=== PATIENT | female | born 1950 | race Caucasian/White ===

== ENCOUNTER 2017-04-23 08:48 | Observation (INO) | payer MEDICARE, BC ==
[2017-04-23] MEDS ORDERED: Aspirin Low Dose CHEW TAB* 81 MG PO ONE (08:51)
[2017-04-23] MEDS ORDERED: Nitroglycerin TAB 0.4 MG* 0.4 MG TAB SL PRN (08:51)
[2017-04-23] MEDS ORDERED: Nitroglycerin TAB 0.4 MG* 0.4 MG TAB ONE (09:07)
[2017-04-23 09:09] LABS: Hematocrit 50 % (35-47); Hemoglobin 17.3 g/dl (12.0-16.0); Mean Corpuscular HGB Conc 35 g/dl (31-36); Mean Corpuscular Hemoglobin 34 pg (27-31); Mean Corpuscular Volume 99 fL (80-97); Mean Platelet Volume 10 um3 (7.4-10.4); Red Blood Count 5.04 10^6/ul (4.0-5.4); Red Cell Distribution Width 13 % (10.5-15); White Blood Count 6.7 10^3/ul (3.5-10.8)
[2017-04-23 09:26] LABS: Albumin 4.6 g/dL (3.2-5.2); BUN/Creatinine Ratio 14.6 (8-20); Calcium 9.8 mg/dL (8.6-10.3); EGFR African American 69.2 (>60); EGFR Non-African American 53.8 (>60); Globulin 2.9 g/dL (2-4); Potassium 3.3 mmol/L (3.5-5.0); Total Bilirubin 2.2 mg/dL (0.2-1.0); Total Protein 7.5 g/dL (6.4-8.9)
--- NOTE | 2017-04-23 09:40 | RAD ---
Indication: Epigastric pressure, shortness of breath, cardiac irregularity, hypertension. History of bronchitis. Comparison: December 08, 2014 Technique: Upright AP 0911 hours Report: Clear lungs and pleural spaces. Negative for pneumothorax. The heart, pulmonary vasculature, and mediastinal contours are unremarkable. Negative for free air beneath the diaphragm. Gallbladder fossa level surgical clips. Unchanged mild LEFT convex curve at the thoracic spine. IMPRESSION: No evidence for acute intrathoracic disease.
[2017-04-23 10:02] LABS: T4 6.02 mcg/mL (6.09-12.23)
[2017-04-23 10:03] LABS: TSH (Thyroid Stimulating Horm) 1.38 mcIU/mL (0.34-5.60)
[2017-04-23] MEDS ORDERED: Potassium Chlor TAB* 20 MEQ TAB.ER PO ONE (10:42)
[2017-04-23] MEDS ORDERED: NS 0.9% 1000 ML* 1,000 ML IV ONE (11:38)
[2017-04-23] MEDS ORDERED: Albuterol HFA INHALER* 8 gm MDI INH PRN (11:43)
[2017-04-23] MEDS ORDERED: traZODone TAB* 50 MG TAB PO PRN (11:43)
[2017-04-23] MEDS ORDERED: NS 0.9% 1000 ML* 1,000 ML IV SCH (11:45)
--- NOTE | 2017-04-23 12:12 | ED ---
Brenda Coats Auryana, scribed for Kaleb Pena MD on 04/23/17 at 0902 . 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 Her states that she was very tired yesterday but did not have any chest pain. He also reports that she has been having increased SOB , cough, and wheezing for 1 week due to allergens secondary to asthma. PMHx is significant for asthma, depression, HTN (per medical records), palpations (HCT and metoprolol to control) but states no history of HTN, HLD, or DM. states no FHx of early PR, HTN, HLD, or CAD - previous medical records indicate family history of HTN, CAD, bladder cancer, and breast cancer. Per medical records history of rare alcohol use - no tobacco use. - History of Current Complaint Time Seen by Provider: 04/23/17 08:49 Hx Obtained From: Family/Baggage Handler - Onset/Duration: Started Minutes Ago - 20 minutes CAD ENGINEER Time of Onset: 08:29 - 20 minutes CAD ENGINEER Timing: Constant Initial Severity: Moderate Current Severity: Moderate Chest Pain Location: Diffuse Character: Crushing Associated Signs and Symptoms: Positive: Chest Pain, Shortness of Breath, Cough , Wheezing Related History: Similar Episode/Dx as: - history of palpitations - Allergy/Home Medications Allergies/Adverse Reactions: Allergies Allergy/AdvReac Type Severity Reaction Status Date / Time Amoxicillin [From Augmentin] Allergy Unknown Verified 06/20/16 15:02 Reaction Details Clavulanic Acid Allergy Unknown Verified 06/20/16 15:02 [From Augmentin] Reaction Details Niacinamide Allergy Unknown Verified 07/17/16 14:53 [From B-Complex W/B-12] Reaction Details Pantothenic Acid Allergy Unknown Verified 07/17/16 14:53 [From B-Complex W/B-12] Reaction Details Povidone Iodine Allergy Unknown Verified 06/20/16 15:02 [From Betadine] Reaction Details Pyridoxine Allergy Unknown Verified 07/17/16 14:53 [From B-Complex W/B-12] Reaction Details Riboflavin Allergy Unknown Verified 07/17/16 14:53 [From B-Complex W/B-12] Reaction Details Thiamine Allergy Unknown Verified 07/17/16 14:53 [From B-Complex W/B-12] Reaction Details Tobramycin [From Tobrex] Allergy Unknown Verified 06/20/16 15:02 Reaction Details Vitamin B12 Allergy Unknown Verified 07/17/16 14:53 [From B-Complex W/B-12] Reaction Details vitamin b complex Allergy Unknown Uncoded 06/20/16 15:02 Reaction Details Home Medications: Home Medications Multiple Vitamin [Multivitamin+] 1 liq PO DAILY 04/23/17 [History Confirmed ] Allen-3 Fatty Acids [Fish Oil] 1,000 mg PO BID 04/23/17 [History Confirmed 04/23] PMH/Surg Hx/FS Hx/Imm Hx Cardiovascular History: Reports: Hx Hypertension, Other Cardiovascular Problems/ Disorders - palpitations Respiratory History: Reports: Hx Asthma Psychiatric History: Reports: Hx Depression - Cancer History Hx Chemotherapy: No Hx Radiation Therapy: No - Surgical History Surgery Procedure, Year, and Place: BREAST REDUCTION 3 YRS - Family History Known Family History: Positive: Cardiac Disease, Hypertension, Other - breast cancer, bladder cancer; NO HISTORY OF EARLY PR Negative: Diabetes - Social History Occupation: Retired Lives: With Family Alcohol Use: Rare Hx Substance Use: No Substance Use Type: Reports: None Hx Tobacco Use: No Smoking Status (MU): Never Smoked Tobacco Review of Systems Constitutional: Negative Eyes: Negative ENT: Negative Positive: Chest Pain Positive: Shortness Of Breath, Cough, Other - wheezing Gastrointestinal: Negative Genitourinary: Negative Musculoskeletal: Negative Skin: Negative Neurological: Negative Psychological: Normal All Other Systems Reviewed And Are Negative: Yes Physical Exam - Summary Physical Exam Summary: VITAL SIGNS: Reviewed. GENERAL: Patient is a well-developed and nourished female who is lying anxious and nervous in the stretcher. Patient is not in any acute respiratory distress. HEAD AND FACE: No signs of trauma. No ecchymosis, hematomas or skull depressions. No sinus tenderness. EYES: PERRLA, EOMI x 2, No injected conjunctiva, no nystagmus. EARS: Hearing grossly intact. Ear canals and tympanic membranes are within normal limits. MOUTH: Oropharynx within normal limits. NECK: Supple, trachea is midline, no adenopathy, no JVD, no carotid bruit, no c- spine tenderness, neck with full ROM. CHEST: Symmetric, no tenderness at palpation LUNGS: Clear to auscultation bilaterally. No wheezing or crackles. CVS: Regular rate and rhythm, S1 and S2 present, no murmurs or gallops appreciated. ABDOMEN: Soft, non-tender. No signs of distention. No rebound no guarding, and no masses palpated. Bowel sounds are normal. EXTREMITIES: FROM in all major joints, no edema, no cyanosis or clubbing. NEURO: Alert and oriented x 3. No acute neurological deficits. Speech is normal and follows commands. SKIN: Dry and warm Triage Information Reviewed: Yes Vital Signs On Initial Exam: Initial Vitals Temp Pulse Resp BP 97.2 F 93 30 145/98 04/23/17 08:49 04/23/17 08:49 04/23/17 08:49 04/23/17 08:49 Vital Signs Reviewed: Yes Diagnostics - Vital Signs Vital Signs Temp Pulse Resp BP Pulse Ox 04/23/17 09:04 64 22 127/88 100 04/23/17 09:00 51 16 101/67 100 04/23/17 08:56 75 20 100 04/23/17 08:55 97.5 F 64 20 145/98 100 04/23/17 08:49 97.2 F 93 30 145/98 - Laboratory Lab Results: Lab Results 04/23/17 04/23/17 04/23/17 Range/Units 08:55 08:55 08:55 WBC 6.7 (3.5-10.8) 10^3/ul RBC 5.04 (4.0-5.4) 10^6/ul Hgb 17.3 H (12.0-16.0) g/dl Hct 50 H (35-47) % MCV 99 H (80-97) fL MCH 34 H (27-31) pg MCHC 35 (31-36) g/dl RDW 13 (10.5-15) % Plt Count 194 (150-450) 10^3/ul MPV 10 (7.4-10.4) um3 Neut % (Auto) 46.8 (38-83) % Lymph % (Auto) 41.0 (25-47) % [place] % (Auto) 9.9 H (1-9) % Eos % (Auto) 1.3 (0-6) % Baso % (Auto) 1.0 (0-2) % Absolute Neuts (auto) 3.1 (1.5-7.7) 10^3/ul Absolute Lymphs (auto) 2.8 (1.0-4.8) 10^3/ul Absolute Monos (auto) 0.7 (0-0.8) 10^3/ul Absolute Eos (auto) 0.1 (0-0.6) 10^3/ul Absolute Basos (auto) 0.1 (0-0.2) 10^3/ul Absolute Nucleated RBC 0.01 10^3/ul Nucleated RBC % 0.1 D-Dimer, Quantitative (Less Than 230) ng/mL Sodium 134 (133-145) mmol/L Potassium 3.3 L (3.5-5.0) mmol/L Chloride 102 (101-111) mmol/L Carbon Dioxide 21 L (22-32) mmol/L Anion Gap 11 (2-11) mmol/L BUN 15 (6-24) mg/dL Creatinine 1.03 H (0.51-0.95) mg/dL Est GFR ( Amer) 69.2 (>60) Est GFR (Non-Af Amer) 53.8 (>60) BUN/Creatinine Ratio 14.6 (8-20) Glucose 119 H (70-100) mg/dL Lactic Acid 2.8 H* (0.5-2.0) mmol/L Calcium 9.8 (8.6-10.3) mg/dL Magnesium 2.0 (1.9-2.7) mg/dL Total Bilirubin 2.20 H (0.2-1.0) mg/dL AST 151 H (13-39) U/L ALT 41 (7-52) U/L Alkaline Phosphatase 75 (34-104) U/L Total Creatine Kinase 87 (10-223) U/L CK-MB (CK-2) 1.8 (0.6-6.3) ng/mL Myoglobin 34.7 (14.3-65.8) ng/mL Troponin I 0.00 (<0.04) ng/mL B-Natriuretic Peptide ( - 100) pg/mL Total Protein 7.5 (6.4-8.9) g/dL Albumin 4.6 (3.2-5.2) g/dL Globulin 2.9 (2-4) g/dL Albumin/Globulin Ratio 1.6 (1-3) TSH 1.38 (0.34-5.60) mcIU/mL Thyroxine (T4) 6.02 L (6.09-12.23) mcg/mL 04/23/17 04/23/17 Range/Units 08:55 08:55 WBC (3.5-10.8) 10^3/ul RBC (4.0-5.4) 10^6/ul Hgb (12.0-16.0) g/dl Hct (35-47) % MCV (80-97) fL MCH (27-31) pg MCHC (31-36) g/dl RDW (10.5-15) % Plt Count (150-450) 10^3/ul MPV (7.4-10.4) um3 Neut % (Auto) (38-83) % Lymph % (Auto) (25-47) % [place] % (Auto) (1-9) % Eos % (Auto) (0-6) % Baso % (Auto) (0-2) % Absolute Neuts (auto) (1.5-7.7) 10^3/ul Absolute Lymphs (auto) (1.0-4.8) 10^3/ul Absolute Monos (auto) (0-0.8) 10^3/ul Absolute Eos (auto) (0-0.6) 10^3/ul Absolute Basos (auto) (0-0.2) 10^3/ul Absolute Nucleated RBC 10^3/ul Nucleated RBC % D-Dimer, Quantitative < 200 (Less Than 230) ng/mL Sodium (133-145) mmol/L Potassium (3.5-5.0) mmol/L Chloride (101-111) mmol/L Carbon Dioxide (22-32) mmol/L Anion Gap (2-11) mmol/L BUN (6-24) mg/dL Creatinine (0.51-0.95) mg/dL Est GFR ( Amer) (>60) Est GFR (Non-Af Amer) (>60) BUN/Creatinine Ratio (8-20) Glucose (70-100) mg/dL Lactic Acid (0.5-2.0) mmol/L Calcium (8.6-10.3) mg/dL Magnesium (1.9-2.7) mg/dL Total Bilirubin (0.2-1.0) mg/dL AST (13-39) U/L ALT (7-52) U/L Alkaline Phosphatase (34-104) U/L Total Creatine Kinase (10-223) U/L CK-MB (CK-2) (0.6-6.3) ng/mL Myoglobin (14.3-65.8) ng/mL Troponin I (<0.04) ng/mL B-Natriuretic Peptide 63 ( - 100) pg/mL Total Protein (6.4-8.9) g/dL Albumin (3.2-5.2) g/dL Globulin (2-4) g/dL Albumin/Globulin Ratio (1-3) TSH (0.34-5.60) mcIU/mL Thyroxine (T4) (6.09-12.23) mcg/mL Result Diagrams: 04/23/17 08:55 04/23/17 08:55 Lab Statement: Any lab studies that have been ordered have been reviewed, and results considered in the medical decision making process. 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 Her states that she was very tired yesterday but did not have any chest pain. He also reports that she has been having increased SOB, cough, and wheezing for 1 week due to allergens secondary to asthma. PMHx is significant for asthma, depression, HTN (per medical records), palpations (HCT and metoprolol to control) but states no history of HTN, HLD, or DM. states no FHx of early PR, HTN, HLD, or CAD - previous medical records indicate family history of HTN, CAD, bladder cancer, and breast cancer. Per medical records history of rare alcohol use - no tobacco use. Test results shows increase H/H. Potassium 3.3, glucose 119, lactic acid 2.8. Troponin 0.00. EKG shows no GERMÁN but ST depressions in V4-V6. In the Ed she was given ASA and Nitroglycerin and her symptoms improved. At this time she is asymptomatic. BEcause of her comorbidities, presentation and resolution with NTG I discussed my physical exam, findings and test results with Dr. Campos from the hospitalist services and she agrees to admit patient to his services. Patient is hemodynamically stable alert and oriented x 3. Assessment/Plan: CXR - NAD. EKG - NSR @ 70 BPM, no ST elevation but ST depressions in V4, V5, and V6 - Diagnoses Provider Diagnoses: Chest pain r/o ACS - Provider Notifications Discussed Care Of Patient With: Dr. Campos Time Discussed With Above Provider: 10:46 - agrees to admit patient Discharge - Discharge Plan Condition: Stable Disposition: ADMITTED TO [facility] Referrals: Mary Grimm GIS MANAGER [Primary Care Provider] - The documentation as recorded by the Brenda cyo Auryana accurately reflects the service I personally performed and the decisions made by me, Kaleb Pena MD.
[2017-04-23] MEDS: KCL 10 MEQ/50 ML IVPREMIX* 10 MEQ/50 ML BAG IV SCH ×3 (12:50→19:32)
[2017-04-23] MEDS: Heparin VIAL(*) 5000 UNITS/ML VIAL (FIVE THOUSAND) SUBCUT SCH ×2 (12:54→22:10)
[2017-04-23] MEDS: Nitroglycerin 2% OINT* 1 GM PAK TOPICAL SCH ×2 (12:59→19:32)
[2017-04-23] MEDS ORDERED: Acetaminophen TAB* 325 MG PO PRN (19:42)
--- NOTE | 2017-04-23 20:24 | HP ---
HISTORY AND PHYSICAL: DATE OF ADMISSION: 04/23/17 PRIMARY CARE PROVIDER: Mary Grimm NP ATTENDING PHYSICIAN WHILE IN THE HOSPITAL: Dr. Randolph Campos* (report being dictated by Sahil Garzon NP). CHIEF COMPLAINT: Chest tightness. HISTORY OF PRESENT ILLNESS: Ms. Mckeon is a 66-year-old female patient. She has a history of hypertension, asthma, depression, IBS, skin cancer, and GERD. She came in today saying that yesterday she was feeling tired, feeling off, just was not feeling herself. She woke up, she got up this morning, she was going to go workout, but she did not work out because she started getting chest heaviness and tightness after she had drunk a cup of coffee and had a part of a cookie. She says the discomfort though did not feel like her typical GERD symptoms, she did not feel burning. She had no pain in her epigastric, but she had this heaviness and tightness that got progressively worse and she started feeling clammy. She was nauseated and she was feeling short of breath, the discomfort got worse. She tried walking up and down the stairs, did not make the discomfort any worse when she did this, but it did not make it any better. She started getting anxious and she called her to bring her into the hospital as she was concerned that that this could be something more serious. She denied any recent trips or travel. Denied having any leg, calf pain, or any swelling of the lower extremities. She denied having any recent fevers, chills, runny nose, or rhinorrhea. She says that she has not experienced this pain before when she exercises and she exercises about every other day. She came in to the ER. She was evaluated and it was noted that she had some EKG changes that we do not know if chronic or new. In addition to this , there was concern because of the chest discomfort, so the hospitalist service was asked to evaluate for admission. PAST MEDICAL HISTORY: Significant for: 1. Hypertension. 2. Asthma. 3. Depression. 4. IBS. 5. GERD. 6. Skin cancer. PAST SURGICAL HISTORY: She has had: 1. Laparoscopic cholecystectomy. 2. Ectopic . 3. Lysis of adhesions. 4. Tonsillectomy. HOME MEDICATIONS: According to list that she gave us include: 1. Trazodone 50 mg p.o. bedtime as needed. 2. Progesterone 100 mg p.o. daily. 3. Otis-3 fatty acids 1000 mg p.o. b.i.d. 4. Multivitamin 1 capsule p.o. daily. 5. Metoprolol 25 mg daily. 6. Hydrochlorothiazide 25 mg daily. 7. Estradiol patch 1 patch transdermally monthly. 8. Cetirizine 10 mg p.o. daily. 9. Wellbutrin 150 mg p.o. daily. 10. Albuterol 2 puffs inhaled every 4 hours as needed. ALLERGIES TO MEDICATIONS: Include AUGMENTIN, BETADINE, VITAMIN B COMPLEX, and TOBRADEX. FAMILY HISTORY: Her mother had valvular heart disease. Father had a history of hypertension. SOCIAL HISTORY: She does not smoke. She does drink wine with dinner. She is retired. Surrogate decision maker is her . REVIEW OF SYSTEMS: There is no documented fever. She denied having any significant weight change. She admits to having chest pressure, but it is gone now. She denies having any double vision. There is no ear discharge. There was no rhinorrhea. No sore throat. No thyroid enlargement. She again did admit to having chest pressure. No orthopnea, no dyspnea on exertion. There was no abdominal pain. There was nausea. There was no dysuria, no frequency. No seizure, no loss of consciousness. No pruritus and no skin ulcerations. Review of 14 systems completed, all others are negative. PHYSICAL EXAMINATION GENERAL: At this time, Ms. Mckeon is a 66-year-old female patient. She is sitting in the ER stretcher. She appears to be well-nourished and well- developed. Does not appear to be in any acute distress. VITAL SIGNS: Reveal blood pressure 127/88 with a pulse 65, respirations 20, O2 sat 100%, temperature 97.5. HEENT: Head is atraumatic, normocephalic. Eyes: EOMs are intact. Sclerae are anicteric, not pale. Neck supple. Throat: Oral mucosa appears to be moist. No oropharyngeal erythema. LUNGS: Clear to auscultation bilaterally. No wheezes, rales, or rhonchi. HEART: Sounds S1 and S2. Regular rate and rhythm. No murmurs, rubs, or gallops. ABDOMEN: Soft, flat, and nontender. Bowel sounds present. EXTREMITIES: Pulses were 2+ throughout. She is able to move all 4 extremities with 5/5 strength. NEUROLOGIC: The patient is awake, alert, she is oriented x3. SKIN: Intact. DIAGNOSTIC STUDIES/LAB DATA: Labs revealed a WBC of 6.7, RBC of 5.04, hemoglobin of 17.3, hematocrit of 50, platelet count of 194. D-dimer less than 200. Her sodium was 134, potassium was 3.3, chloride of 102, bicarb 21, BUN 15 , creatinine 1.03, glucose 119, lactate 2.8, calcium 9.8. Total bili 2.2, mag 2.0, AST 151, ALT 41. CK 7, CK-MB 1.8, myoglobin 34. Troponin 0. BNP is 63. Albumin 4.6. TSH 1.38. She had an EKG obtained today, a repeat is pending. She has a wandering baseline, but there is no ST elevation; however, she does have some ST depressions in V4, V5, and V6. I do not have a previous record for comparison and she had an inverted T wave in V1. I am going to repeat that EKG now. She did have a chest x-ray, which when I reviewed, I did not appreciate any acute intrathoracic disease or any infiltrates or effusions. Radiology read as no acute intrathoracic disease. Old medical records reviewed. ASSESSMENT AND PLAN: Ms. Mckeon is a 66-year-old female patient coming into the ER today with complaints of chest discomfort. She will be admitted under observation status for: 1. Chest pain. Again, the etiology is unclear. She does have some EKG changes and ST depression. She is chest pain free now. Plan is to repeat her troponin now and repeat the EKG. If either of these is changing or she has elevating enzymes, I will get in touch with Dr. Coleman to evaluate the patient and I will start her on heparin drip. She is already on a beta yolande. She took it this morning. She received aspirin and nitro. I am going to put nitro paste on her chest and we will put her on telemetry and we will continue to follow. Again, if the troponins are elevated, then I will get Cardiology consult, most likely start a heparin drip. 2. Hypertension. Continue meds as prescribed with the exception of the hydrochlorothiazide. 3. Lactic acidosis. I do not think she is infected. She appears to be pretty dehydrated. She is heme concentrated. We will hold the hydrochlorothiazide, go ahead and give her some fluids and follow. If she spikes a fever, then I would panculture her. 4. Asthma. P.r.n. albuterol has been ordered. 5. Irritable bowel syndrome. Continue with her current medical regimen. 6. Depression. Continue supportive care. 7. Hypertension. Continue with beta yolande. 8. Gastroesophageal reflux disease. We will consider starting a PPI if her cardiac workup is negative and she has had esophagitis in the past. 9. History of skin cancer. Follow with primary. 10. Hypokalemia. We will go ahead and replace this with IV potassium. 11. Code status. Full code. 12. DVT prophylaxis. She was placed on heparin subcu. 13. Fluids, electrolytes, and nutrition. She can have a heart-healthy diet and she is n.p.o. tonight. TIME SPENT: On this admission was approximately 70 minutes, greater than half time spent [id number] with the patient obtaining my history and physical, the other half time was spent going over the plan of care with the patient and implementing plan of care. I did discuss the plan of care with my attending, Dr. Campos; he is in agreement. SAHIL GARZON NP CC: Mary Grimm NP* [id number]/[facility] #: [id number] GONZALEZ
[2017-04-24 05:34] LABS: Hematocrit 42 % (35-47); Hemoglobin 14.4 g/dl (12.0-16.0); Mean Corpuscular HGB Conc 35 g/dl (31-36); Mean Corpuscular Hemoglobin 35 pg (27-31); Mean Corpuscular Volume 100 fL (80-97); Mean Platelet Volume 10 um3 (7.4-10.4); Red Blood Count 4.18 10^6/ul (4.0-5.4); Red Cell Distribution Width 13 % (10.5-15); White Blood Count 4.8 10^3/ul (3.5-10.8)
[2017-04-24] MEDS: Heparin VIAL(*) 5000 UNITS/ML VIAL (FIVE THOUSAND) SUBCUT SCH (05:36)
[2017-04-24 05:46] LABS: BUN/Creatinine Ratio 13.7 (8-20); Calcium 8.6 mg/dL (8.6-10.3); EGFR African American 102.9 (>60); HDL Cholesterol 54.1 mg/dL; Potassium 3.8 mmol/L (3.5-5.0)
[2017-04-24 07:51] VITALS: BP 113/65
[2017-04-24] MEDS ORDERED: Metoprolol Succinate XL TAB* 25 MG PO SCH (09:00)
[2017-04-24] MEDS ORDERED: BuPROPion XL* 150 MG TAB.XL PO SCH (09:00)
[2017-04-24] MEDS ORDERED: Cetirizine* 10 MG TAB PO SCH (09:00)
[2017-04-24] MEDS ORDERED: Aspirin Low Dose CHEW TAB* 81 MG PO SCH (09:00)
--- NOTE | 2017-04-24 11:35 | RAD ---
Edited for charges. Indication: Chest pain. Myocardial perfusion scan was performed utilizing 1 day protocol. Rest myocardial perfusion was performed after intravenous injection of 10.2 mCi of technetium 99m tetrofosmin. Treadmill stress study was performed and the maximum heart rate achieved was 110% of the maximum predicted value. There is homogeneous distribution of the radiotracer throughout the left ventricle. There is no evidence of any fixed or reversible perfusion defects identified. Ejection fraction at stress is 74%. Evaluation of wall motion demonstrates no focal wall motion abnormality. IMPRESSION: No evidence of fixed or reversible perfusion defect is identified. ASSESSMENT: Low risk low risk Based on imaging criteria from ACC/AHA 2002 Guideline Update for the Management of Patients With Chronic Stable Angina Table 23. Noninvasive Risk Stratification. MTDD
--- NOTE | 2017-04-25 02:40 | DS ---
DISCHARGE SUMMARY: DATE OF ADMISSION: 04/23/17 DATE OF DISCHARGE: 04/24/17 PRIMARY CARE PROVIDER: Mary Grimm NP DISCHARGING PROVIDER: JANAK Wayne SUPERVISING PHYSICIAN: Nuris Serrano MD* (dictated by JANAK Wayne) PRIMARY DISCHARGE DIAGNOSES: 1. Chest pain - without evidence of acute coronary syndrome. 2. Hypokalemia - resolved. SECONDARY DISCHARGE DIAGNOSES: 1. Hypertension. 2. Asthma. 3. Depression. 4. Irritable bowel syndrome. 5. Gastroesophageal reflux disease. DISCHARGE MEDICATIONS: 1. Albuterol 2 puffs inhaled q.4 hours as needed for shortness of breath. 2. Wellbutrin XL 150 mg p.o. daily. 3. Cetirizine 10 mg p.o. daily. 4. Estradiol 0.0375 mg per day, apply transdermally, changed on Mondays and . 5. Hydrochlorothiazide 25 mg p.o. daily. 6. Metoprolol succinate 25 mg p.o. daily. 7. Multivitamin 1 tablet p.o. daily. 8. Trinidad-3 fatty acid 1000 mg p.o. daily. 9. Progesterone capsule 100 mg p.o. daily. 10. Trazodone 50 mg p.o. at bedtime. HOSPITAL IMAGIN. Chest x-ray shows no acute process. 2. Nuclear stress test is read as a low-risk study with no evidence of fixed or reversible perfusion deficits with a normal ejection fraction. 3. EKG initially shows a sinus rhythm with ST depressions appreciated in V3 through V6. These ST depressions resolved on serial EKGs. HOSPITAL COURSE: This is a 66-year-old female, who is quite active and exercises regularly with history of hypertension, asthma, depression, irritable bowel syndrome and GERD, who presented to the emergency department with complaints of chest tightness. Her symptoms started shortly after waking up yesterday morning. She was experiencing just some generalized malaise that eventually progressed into feelings of chest heaviness and tightness after consuming her breakfast. She felt slightly diaphoretic and nauseated with some mild shortness of breath. When the patient reached the emergency department, her initial EKG was somewhat concerning as she was in sinus rhythm, but had some ST depressions in V3 through V6 and there is no old EKG available for comparison. Her initial troponin was negative, but the patient was chest pain free after one nitroglycerin. D-dimer was checked and was negative listed as less than 200. The patient was subsequently admitted to the hospital. Serial EKGs and troponins were completed. The initial ST depression appeared to resolve and normalize and serial troponins remained negative and the patient remained chest pain free. She underwent a stress testing on the morning of discharge, which was read as a low- risk study and the patient remained asymptomatic. Fasting lipid panel was completed, which showed a total cholesterol of 149 and a LDL of 72. Hemoglobin A1c was obtained and measured at 4.2%. DISPOSITION: The patient is being discharged to home where she lives with her . No evidence of acute coronary syndrome. Stress testing was negative. No evidence of cardiopulmonary disease contributing to her acute symptoms. Recommend followup with primary care provider regarding this hospitalization. JANAK WAYNE CC: Mary Grimm NP* [id number]/[facility] #: [id number] GONZALEZ
== END 2017-04-24 12:50 | disposition home or self-care (01) ==
LOC: ED 08:48 → MEDTELE 11:32
PROVIDERS: ADMIT Internal Medicine; ATTEND Internal Medicine
DX: R07.9 Chest pain, unspecified (principal); E87.6 Hypokalemia; R94.31 Abnormal electrocardiogram [ECG] [EKG]; R06.02 Shortness of breath; E86.0 Dehydration; E87.2 Acidosis; I10 Essential (primary) hypertension; J45.909 Unspecified asthma, uncomplicated; K58.9 Irritable bowel syndrome, unspecified; K21.9 Gastro-esophageal reflux disease without esophagitis; F32.9 Major depressive disorder, single episode, unspecified; Z79.899 Other long term (current) drug therapy; Z88.8 Allergy status to other drugs, medicaments and biological substances
CPT/HCPCS: 36415; 71010; 78452; 80048; 80053; 80061; 82550; 82553; 83036; 83605; 83735; 83874; 83880; 84436; 84443; 84484; 85025; 85379; 93005; 93017; 96360; 96361; 96372; 99283; A9270-GY; A9502; G0378; J1644; J3480

== ENCOUNTER 2019-09-20 20:12 | Emergency (ER) | payer MEDICARE, BC ==
--- OUTSIDE RECORDS SUMMARY | 2019-09-20 20:19 | XMS REPORT | Continuity of Care Document ---
:1950 External Reference #:[id number] Author Name Mary Grimm N.P. 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 Onset: 01/31/2016 Asthma Mary Grimm, N.P. Onset: 01/22/2018 Menopause present Vini Gallego M.D.,FACP Onset: 03/04/2018 Localized, primary osteoarthritis of Tiara Garcia M.D. Onset: 05/26/2018 the pelvic region and thigh Trochanteric bursitis Tiara Garcia M.D. Onset: 05/26/2018 Social History Type Date Description Comments Sex Unknown ETOH Use Consumes 1 glass of wine per day Tobacco Use Start: Unknown Patient has never smoked Smoking Status Reviewed: 07/31/19 Patient has never smoked Exercise Exercises sporadically Related to hip pain Type/Frequency Allergies, Adverse Reactions, Alerts Active Allergies Reaction Severity Comments Date Betadine RASH Moderate 01/24/2010 Tobrex reddness of eyes Moderate 01/24/2010 Augmentin nausea 04/23/2014 Medications Active Medications SIG Qnty Indications Ordering Date Provider Bupropion Hydrochloride Take One Tablet 30tabs F32.9 Mary Varn, 2018 ER (XL) By Mouth Every N.P. 150mg Tablets ER 24HR Day Trazodone HCL Take One Tablet 30tabs Mary Varn, 05/10/2019 50mg Tablets By Mouth AT N.P. Bedtime as Needed Sertraline HCL 1 by mouth 90tabs F32.9 Mary Morgann, 02/25/2019 100mg Tablets every day N.P. Tramadol HCL 1 tablet three 60tabs M25.559 Mary Eddien, 01/29/2019 50mg Tablets times daily as N.P. needed Ipratropium 1 vial in 180ml J20.9 Mary Eddien, 01/09/2019 [place]/Albuterol Sulfate nebulizer three N.P. times a day as 0.5-2.5(3)mg/3ML Solution needed for asthma Fluconazole one by mouth 2tabs Mary Eddien, 11/05/2018 150mg Tablets may repeat in 3 N.P. days as needed Progesterone Micronized Take One 30caps Mary Morgann, 10/25/2018 100mg Capsule By N.P. Capsules Mouth Every Day Ibuprofen 1 by mouth 60tabs M25.559 Mary Morgann, 07/28/2018 600mg Tablets every 6 hours N.P. as needed for pain D3 High Potency take one 90caps Mary Morgann, 05/07/2018 5000Unit capsule/tablet N.P. Capsules daily by mouth Advair Diskus 1 puff by mouth 60units J45.21 Mary Morgann, 12/26/2017 250-50mcg/Dose twice a day N.P. Aerosol Alprazolam take one tablet 30tabs Mary Varn, 07/22/2017 0.25mg Tablets by mouth three N.P. times a day maximum daily dose = 3 Vivelle-Dot Apply 1 Patch 8units Mary Morgann, 08/02/2015 0.0375mg/24HR To Skin Twice N.P. Patches Biweek Weekly as Directed Ventolin HFA Inhale One To 18units Mary Morgann, 11/29/2014 108(90Base) Two Puffs By N.P. mcg/Act Aerosol Mouth Every 4 Hours as Needed Nebulizer To use as 1units Kelley Whittington, 05/08/2013 Misc needed M.D., FACP Metoprolol Succinate ER Take One Tablet 90tabs Sarah 03/02/2013 25mg By Mouth Every Cotton, M.D. Tablets ER 24HR Day Zyrtec Allergy 1 po qd 30caps Kelley Whittington, 04/16/2011 10mg Capsules M.D., FACP Hydrochlorothiazide Take One Tablet 90tabs Kelley Whittington, 11/13/2010 25mg By Mouth Every M.D., FACP Tablets Day [place]-3 Fish Oil once a day Unknown 1000mg Capsules Medications Administered in Office Medication SIG Qnty Indications Ordering Provider Date Depomedrol 40MG Tiara Garcia M.D. 05/26/2018 Injection Depomedrol 40MG Tiara Garcia M.D. 12/16/2015 Injection Immunizations CPT Code Status Date Vaccine Reaction Lot # [id number] Given 02/25/2019 Pneumonia Vaccine No immediate [id number] reaction.. 64700 Given 01/22/2018 Tdap - No immediate [id number] Tetanus/Diptheria/Acellula reaction.. r Pertussis 95667 Given 01/22/2018 Pneumococcal Conjugate No immediate [id number] Vaccine 13 Valent For reaction.. Intramuscular Use 81454 Given 06/23/2013 Zoster (Zostavax) [id number] Q2038 Given 09/20/2012 Fluzone Vaccine 25439 Given 09/04/2011 Influenza Virus 3Yrs & [id number] Over 99796 Given 08/31/2010 Pneumonia Vaccine 34865 Given 08/31/2010 Influenza Virus 3Yrs & Over 17934 Given 08/02/2009 Influenza Virus 3Yrs & Over 04847 Given 09/21/2008 Influenza Virus 3Yrs & Over 70987 Given 06/18/2008 Tdap - Tetanus/Diptheria/Acellula r Pertussis 58444 Given 12/26/2006 Influenza Virus 3Yrs & Over Vital Signs Date Vital Result Comment 07/31/2019 11:28am Height 65 inches 5'5" Weight 151.00 lb Heart Rate 73 /min BP Systolic 119 mmHg BP Diastolic 73 mmHg Body Temperature 97.8 F O2 % BldC Oximetry 97 % BMI (Body Mass Index) 25.1 kg/m2 02/25/2019 10:25am Height 65 inches 5'5" Weight 149.00 lb Heart Rate 73 /min BP Systolic 107 mmHg BP Diastolic 64 mmHg Body Temperature 96.9 F O2 % BldC Oximetry 96 % BMI (Body Mass Index) 24.8 kg/m2 Results Description No Information Available Procedures Date Code Description Status 02/16/2019 [id number] Mammogram Completed 11/15/2017 [id number] Mammogram Completed 08/15/2016 [id number] Mammogram Completed 06/22/2016 [id number] Colonoscopy Completed 07/14/2015 [id number] Mammogram Completed 01/14/2015 [id number] Diabetic Retinal Eye Exam Completed 12/15/2014 [id number] Mammogram Completed 05/04/2014 [id number] Mammogram Completed 10/21/2012 [id number] Mammogram Completed 01/09/2012 [id number] Colonoscopy Completed 10/01/2011 [id number] Mammogram Completed 09/14/2010 [id number] Mammogram Completed 01/23/2007 [id number] Bone Mineral Density Test Completed Medical Devices Description No Information Available Encounters Type Date Location Provider Dx Diagnosis Office Visit 02/25/2019 [facility] Internal Mary Grimm, F32.9 Major depressive 10:20a Medicine - [facility] N.P. disorder, single episode, unspecified M25.559 Pain in unspecified hip Z23 Encounter for immunization Assessments Date Code Description Provider 07/31/2019 F07.81 Postconcussional syndrome Mary Grimm, N.P. 02/25/2019 F32.9 Major depressive disorder, single episode, Mary Grimm, N.P. unspecified 02/25/2019 M25.559 Pain in unspecified hip Mary Grimm, N.P. 02/25/2019 Z23 Encounter for immunization Mary Grimm N.P. Plan of Treatment Future Appointment(s):02/02/2020 9:20 am - [facility].P[facility] am - Mary Grimm, N.P. at [facility] Internal Medicine - [facility]07/31/2019 - Mary Grimm N.P.F07.81 Postconcussional syndromeNew Therapy:Physical TherapyComments:To help you recover from your concussion I am referring you for physical therapy. I strongly advise you to see Jesse Isaac as he specializes in head injuries. Functional Status Description No Information Available Mental Status Description No Information Available Referrals Description No Information Available
--- OUTSIDE RECORDS SUMMARY | 2019-09-20 20:19 | XMS REPORT | Continuity of Care Document ---
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 50mcg/Act Suspension Bupropion Hydrochloride Take One Tablet 30tabs F32.9 Mary Grimm, 2018 ER (XL) By Mouth Every N.P. 150mg Tablets ER 24HR Day Trazodone HCL Take One Tablet 30tabs Mary Varn, 05/10/2019 50mg Tablets By Mouth AT N.P. Bedtime as Needed Sertraline HCL 1 by mouth 90tabs F32.9 Mary Varn, 02/25/2019 100mg Tablets every day N.P. Tramadol HCL 1 tablet three 60tabs M25.559 Mary Varn, 01/29/2019 50mg Tablets times daily as N.P. needed Ipratropium 1 vial in 180ml J20.9 Mary Varn, 01/09/2019 [place]/Albuterol Sulfate nebulizer three N.P. times a day as 0.5-2.5(3)mg/3ML Solution needed for asthma Fluconazole one by mouth 2tabs Mary Varn, 11/05/2018 150mg Tablets may repeat in 3 N.P. days as needed Progesterone Micronized Take One 30caps Mary Alfa, 10/25/2018 100mg Capsule By N.P. Capsules Mouth Every Day Ibuprofen 1 by mouth 60tabs M25.559 Sina Wall NP 07/28/2018 600mg Tablets every 6 hours as needed for pain D3 High Potency take one 90caps Mary Varn, 05/07/2018 5000Unit capsule/tablet N.P. Capsules daily by mouth Advair Diskus 1 puff by mouth 60units J45.21 Mary Varn, 12/26/2017 250-50mcg/Dose twice a day N.P. Aerosol Alprazolam Take One Tablet 30tabs Mary Varn, 07/22/2017 0.25mg Tablets By Mouth Three N.P. Times A Day, Maximum Daily Dose = 3 [place]-Dot Apply 1 Patch 8units Mary Varn, 08/02/2015 0.0375mg/24HR To Skin Twice N.P. Patches Biweek Weekly as Directed Ventolin HFA Inhale One To 18units Mary Varn, 11/29/2014 108(90Base) Two Puffs By N.P. mcg/Act [...] By Mouth Every M.D., FACP Tablets Day [place]-3 Fish Oil once a day Unknown 1000mg Capsules Medications Administered in Office Medication SIG Qnty Indications Ordering Provider Date Depomedrol 40MG Tiara Garcia M.D. 05/26/2018 Injection Depomedrol 40MG Tiara Garcia M.D. 12/16/2015 Injection Immunizations CPT Code Status Date Vaccine Reaction Lot # 92427 Given 02/25/2019 Pneumonia Vaccine No immediate [id number] reaction.. 91765 Given 01/22/2018 Tdap - No immediate [id number] Tetanus/Diptheria/Acellula reaction.. r Pertussis 18590 Given 01/22/2018 Pneumococcal Conjugate No immediate [id number] Vaccine 13 Valent For reaction.. Intramuscular Use 16870 Given 06/23/2013 Zoster (Zostavax) [id number] Q2038 Given 09/20/2012 Fluzone Vaccine 18052 Given 09/04/2011 Influenza Virus 3Yrs & [id number] Over 53818 Given 08/31/2010 Pneumonia Vaccine 56406 Given 08/31/2010 Influenza Virus 3Yrs & Over 81979 Given 08/02/2009 Influenza Virus 3Yrs & Over 72799 Given 09/21/2008 Influenza Virus 3Yrs & Over 75440 Given 06/18/2008 Tdap - Tetanus/Diptheria/Acellula r Pertussis 08712 Given 12/26/2006 Influenza Virus 3Yrs & Over Vital Signs Date Vital Result Comment 08/27/2019 11:53am Height 65 inches 5'5" Weight 153.00 lb Heart Rate 80 /min BP Systolic 107 mmHg BP Diastolic 68 mmHg Body Temperature 97.6 F O2 % BldC Oximetry 95 % BMI (Body Mass Index) 25.5 kg/m2 07/31/2019 11:28am Height 65 inches 5'5" Weight 151.00 lb Heart Rate 73 /min BP Systolic 119 mmHg BP Diastolic 73 mmHg Body Temperature 97.8 F O2 % BldC Oximetry 97 % BMI (Body Mass Index) 25.1 kg/m2 Results Description No Information Available Procedures Date Code Description Status 02/16/2019 [id number] Mammogram Completed 11/15/2017 [id number] Mammogram Completed 08/15/2016 [id number] Mammogram Completed 06/22/2016 [id number] Colonoscopy Completed 07/14/2015 [id number] Mammogram Completed 01/14/2015 [id number] Diabetic Retinal Eye Exam Completed 12/15/2014 [id number] Mammogram Completed 05/04/2014 [id number] Mammogram Completed 10/21/2012 [id number] Mammogram Completed 01/09/2012 [id number] Colonoscopy Completed 10/01/2011 [id number] Mammogram Completed 09/14/2010 [id number] Mammogram Completed 01/23/2007 [id number] Bone Mineral Density Test Completed Medical Devices Description No Information Available Encounters Type Date Location Provider Dx Diagnosis Office Visit 07/31/2019 [facility] Mary Grimm, F07.81 Postconcussional 11:00a Medicine - N.P. syndrome [facility] Office Visit 02/25/2019 [facility] Mary Grimm F32.9 Major depressive 10:20a Medicine - N.P. disorder, single [facility] episode, unspecified M25.559 Pain in unspecified hip Z23 Encounter for immunization Assessments Date Code Description Provider 08/27/2019 J06.9 Acute upper respiratory infection, unspecified Sina Wall NP 07/31/2019 F07.81 Postconcussional syndrome Mary Grimm, N.P. 02/25/2019 F32.9 Major depressive disorder, single episode, Mary Grimm, N.P. unspecified 02/25/2019 M25.559 Pain in unspecified hip Mary Grimm, N.P. 02/25/2019 Z23 Encounter for immunization Mary Grimm, N.P. Plan of Treatment Future Appointment(s):02/02/2020 9:20 am - Mary Grimm N.P. at [facility] Internal Medicine - [facility]08/27/2019 - Sina Wall NPJ06.9 Acute upper respiratory infection, unspecifiedNew Medication:Fluticasone Propionate 50 mcg/Act - 2 sprays each nostril qd.Comments:Your symptoms are consistent with a viral upper respiratory infection. I recommend treating symptomatically. You can try using the ibuprofen as we discussed. Start using the Flonase, two sprays each nostril once daily. Drink plenty of fluids and try to rest as much as possible. If your symptoms worsenor do not improve please call the office. Functional Status Description No Information Available Mental Status Description No Information Available Referrals Description No Information Available
[2019-09-20 20:27] VITALS: BP 128/66
[2019-09-20] MEDS ORDERED: NS 0.9% 1000 ML** 1,000 ML IV ONE (20:28)
--- NOTE | 2019-09-20 20:38 | UC ---
Cardiac HPI - HPI Summary HPI Summary: Patient is 69 year old female , who present today to the urgent care with chest pain since morning today . She reports that she woke up this am with chest pain to mid sternum. There is associated shortness of breath . pt states she took some aspirin and layed down for a while but her pain continued and describes it as pressure to mid chest. pt denies respiratory symptoms. She has a history of bradycardia/delayed beats (as per patient) Associated symptoms: Denies any fever, chills, cough . No diaphoresis. Denies any abdominal pain , nausea or vomiting , diarrhea or constipation. - History of Current Complaint Chief Complaint: UCChestPain Stated Complaint: CHEST PAIN Time Seen by Provider: 09/20/19 20:14 Hx Obtained From: Patient Pain Intensity: 6 - Allergy/Home Medications Allergies/Adverse Reactions: Allergies Allergy/AdvReac Type Severity Reaction Status Date / Time amoxicillin [From Augmentin] Allergy Unknown Verified 09/20/19 21:23 Reaction Details clavulanic acid Allergy Unknown Verified 09/20/19 21:23 [From Augmentin] Reaction Details iodine Allergy Itching Verified 09/20/19 21:23 latex Allergy Rash Verified 09/20/19 21:23 vitamin b complex Allergy Unknown Uncoded 09/20/19 21:23 Reaction Details vitamin b12 Allergy Unknown Uncoded 09/20/19 21:23 Reaction Details PMH/Surg Hx/FS Hx/Imm Hx - Additional Past Medical History Additional PMH: Past Medical History : Hypertension, asthma Past Surgical History: BREAST REDUCTION 3 YRS URETHROTOMY ABD LESIONS REMOVED GALLBLADDER LASIX -EYE Family History : non contributory Social History : Daily alcohol, non smoker, no drug use. Previously Healthy: Yes - Surgical History Surgical History: Yes Surgery Procedure, Year, and Place: BREAST REDUCTION 3 YRS. URETHROTOMY. ABD LESIONS REMOVED. GALLBLADDER. LASIX -EYE. RUPTURE OVARIAN CYST & EPTOPIC - D & C - Family History Known Family History: Positive: Cardiac Disease, Hypertension, Other - breast cancer, bladder cancer; NO HISTORY OF EARLY PA Negative: Diabetes - Social History Alcohol Use: Daily Substance Use Type: None Smoking Status (MU): Never Smoked Tobacco Review of Systems All Other Systems Reviewed And Are Negative: Yes Constitutional: Positive: Negative, Fever Skin: Positive: Rash ENT: Positive: Negative Respiratory: Positive: Shortness Of Breath Cardiovascular: Positive: Chest Pain Gastrointestinal: Positive: Negative Genitourinary: Positive: Negative Motor: Positive: Negative Neurovascular: Positive: Negative Musculoskeletal: Positive: Negative Neurological: Positive: Negative Psychological: Positive: Negative Is Patient Immunocompromised?: No Physical Exam - Summary Physical Exam Summary: Physical Exam: Const: Appears well. No signs of apparent distress present. Alert and oriented x 3. Musculo: Walks with a normal gait. Head/Face: Atraumatic, normocephalic on inspection. Eyes: EOMI and PERRLA in both eyes. Conjunctivae clear. No discharge noted ENT: Hearing normal, Respiratory: Respirations are unlabored. Lungs clear to auscultation bilaterally, no wheezing , rhonchi or rales noted . CVS: Regular rate and Rhythm, S1S2 normal , no murmurs identified. Extremities: Peripheral circulation is grossly normal. Pulses 2+ Abdomen : Soft non tender , nondistended , Bowel sounds present . No guarding , rebound tenderness or rigidity noted. Skin: No lesions or rash located on the upper extremities or on the lower extremities. Neuro: Cranial nerves II to XII intact, motor and sensory intact. DTR Intact bilaterally. Mood is normal. Affect is normal. Triage Information Reviewed: Yes Vital Signs: Initial Vital Signs Temp 98.8 F 09/20/19 20:21 Pulse 98 09/20/19 20:21 Resp 18 09/20/19 20:21 BP 128/66 09/20/19 20:21 Pulse Ox 95 09/20/19 20:21 Vital Signs Reviewed: Yes Diagnostics - EKG Cardiac Rate: NL Cardiac Rhythm: Sinus: Normal Summary of EKG Findings: Sinus rhythm with a rate of 100, ST depression in V4 and V5 with T-wave inversion in V1 and flat T waves in V2 and V3. No ST elevation. Normal QRS and PA interval. ST depression is new when compared to the EKG from 04/24/17 - Assessment/Plan Course Of Treatment: During the visit today, we obtained EKG: ST depression in V4 and V5 with T- wave inversion in V1 and flat T waves in V2 and V3. No ST elevation. Normal QRS and PA interval. ST depression is new when compared to the EKG from 04/24/17 Patient needs additional testing, thus ER transfer advised and patient agrees. Report called to the ER provider , at [facility], advised provider of the history, physical examination, and duration of illness and EKG findings and further evaluation so far and the need for definitive management.S/ L nitro ordered but was not given as ambulance arrived and started transfer. Ambulance called and patient transferred to ER via ambulance. Vitals are stable at the time of discharge Patient expressed understanding . - Clinical Impression Provider Diagnosis: Cardiac ischemia, Angina pectoris Discharge ED - Sign-Out/Discharge Documenting (check all that apply): Patient Departure All imaging exams completed and their final reports reviewed: No Studies - Discharge Plan Condition: Stable Disposition: TRANS HIGHER LVL OF CARE FAC Referrals: Mary Grimm NP [Primary Care Provider] - Additional Instructions: Patient being discharged to the ER for further testing via ambulance. - Billing Disposition and Condition Condition: STABLE Disposition: Trans Higher Lvl of Care Fac
[2019-09-20] MEDS ORDERED: Nitroglycerin TAB 0.4 MG* 0.4 MG TAB SL ONE (20:49)
== END 2019-09-20 20:50 | disposition short-term general hospital (02) ==
LOC: UCEAST 20:12
DX: I25.9 Chronic ischemic heart disease, unspecified (principal); I20.9 Angina pectoris, unspecified; R21 Rash and other nonspecific skin eruption; J45.909 Unspecified asthma, uncomplicated; I10 Essential (primary) hypertension; Z88.0 Allergy status to penicillin; Z88.1 Allergy status to other antibiotic agents; Z88.8 Allergy status to other drugs, medicaments and biological substances; Z91.040 Latex allergy status; F41.9 Anxiety disorder, unspecified; F32.9 Major depressive disorder, single episode, unspecified; R06.02 Shortness of breath
CPT/HCPCS: 36415; 71045; 80053; 83880; 84484; 85025; 85379; 85610; 86140; 93005; 96374; 99213; 99283; A9270-GY; G0463; J1885

== ENCOUNTER 2019-09-20 21:14 | Emergency (ER) | payer MEDICARE, BC ==
[2019-09-20 21:32] LABS: ABS Basophils 0.1 10^3/ul (0-0.2); ABS Lymphocytes 1.4 10^3/ul (1.0-4.8); ABS Monocytes 0.8 10^3/ul (0-0.8); ABS Neutrophils 7.6 10^3/ul (1.5-7.7); Eosinophil % 0.3 %; Hematocrit 43 % (35-47); Hemoglobin 14.9 g/dL (12.0-16.0); Lymphocyte % 13.8 %; Mean Corpuscular HGB Conc 35 g/dL (31-36); Mean Corpuscular Hemoglobin 35 pg (27-31); Mean Corpuscular Volume 101 fL (80-97); Nucleated Red Blood Cells % 0.2; Platelet Count 164 10^3/uL (150-450); Red Blood Count 4.21 10^6 /uL (3.70-4.87); Red Cell Distribution Width 13 % (10-15); White Blood Count 9.8 10^3/uL (3.5-10.8)
[2019-09-20 21:38] LABS: INR 1.05 (0.82-1.09)
[2019-09-20 21:48] LABS: Albumin 4.2 g/dL (3.2-5.2); Albumin/Globulin Ratio 1.6 (1-3); BUN/Creatinine Ratio 20.9 (8-20); Calcium 9.1 mg/dL (8.6-10.3); EGFR African American 74.4 (>60); EGFR Non-African American 61.5 (>60); Globulin 2.7 g/dL (2-4); Total Bilirubin 0.8 mg/dL (0.2-1.0); Total Protein 6.9 g/dL (6.4-8.9)
[2019-09-20 21:50] LABS: Troponin I 0.01 ng/mL (<0.04)
[2019-09-20 22:11] LABS: C Reactive Protein 16.54 mg/L (<8.01)
--- NOTE | 2019-09-20 22:29 | ED ---
HPI Chest Pain - HPI Summary HPI Summary: 69 year old female presents with chest pain today. She states it started shortly after she woke. States it feels a pressure in the center of her chest. Doesn't radiate anywhere. It hurts worse when she takes a breath. no diaphoresis. She has an occasional cough. No recent illness. No fever. No vomiting. No diaphoresis. No nausea or vomiting. Mom did have a heart attack in her 60s. She is nonsmoker. No recent travel. denies any pain or swelling in her calf muscles. She is nonsmoker. States she does exercise fairly regularly and walks. She denies any change in the pain with activity. She had an aspirin this morning. She states pain is constant. States pain is 4 out of 10. has history of htn. no history of DM. had a negative stress test two years ago. - History of Current Complaint Chief Complaint: EDChestPainROMI Time Seen by Provider: 09/20/19 21:34 Pain Intensity: 0 - Additional Pertinent History Primary Care Physician: SHENG - Allergy/Home Medications Allergies/Adverse Reactions: Allergies Allergy/AdvReac Type Severity Reaction Status Date / Time amoxicillin [From Augmentin] Allergy Unknown Verified 09/20/19 21:23 Reaction Details clavulanic acid Allergy Unknown Verified 09/20/19 21:23 [From Augmentin] Reaction Details iodine Allergy Itching Verified 09/20/19 21:23 latex Allergy Rash Verified 09/20/19 21:23 vitamin b complex Allergy Unknown Uncoded 09/20/19 21:23 Reaction Details vitamin b12 Allergy Unknown Uncoded 09/20/19 21:23 Reaction Details PMH/Surg Hx/FS Hx/Imm Hx Endocrine/Hematology History: Denies: Hx Anticoagulant Therapy, Hx Diabetes Cardiovascular History: Reports: Hx Hypertension - MEDICATED, Other Cardiovascular Problems/Disorders - palpitations Denies: Hx Pacemaker/ICD Respiratory History: Reports: Hx Asthma, Hx Pneumonia History: Denies: Hx Renal Disease Musculoskeletal History: Reports: Hx Arthritis Sensory History: Denies: Hx Contacts or Glasses, Hx Hearing Aid Opthamlomology History: Denies: Hx Contacts or Glasses Psychiatric History: Reports: Hx Anxiety, Hx Depression Denies: Hx Panic Disorder - Cancer History Cancer Type, 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 URETHROTOMY. ABD LESIONS REMOVED. GALLBLADDER. LASIX -EYE. RUPTURE OVARIAN CYST & EPTOPIC - D & C Infectious Disease History: No Infectious Disease History: Denies: Traveled Outside the [place] in Last 30 Days - Family History Known Family History: Positive: Cardiac Disease, Hypertension, Other - breast cancer, bladder cancer; NO HISTORY OF EARLY CA Negative: Diabetes - Social History Alcohol Use: Daily Hx Substance Use: No Substance Use Type: Reports: None Hx Tobacco Use: No Smoking Status (MU): Never Smoked Tobacco Review of Systems Negative: Fever Positive: Chest Pain Positive: Shortness Of Breath. Negative: Cough Negative: Abdominal Pain All Other Systems Reviewed And Are Negative: Yes Physical Exam Triage Information Reviewed: Yes Vital Signs On Initial Exam: Initial Vitals Temp Pulse Resp BP Pulse Ox 98.6 F 92 16 126/67 94 09/20/19 21:15 09/20/19 21:15 09/20/19 21:15 09/20/19 21:15 09/20/19 21:15 Vital Signs Reviewed: Yes Appearance: Positive: Well-Appearing Skin: Positive: Warm, Dry Eyes: Positive: Normal, Conjunctiva Clear ENT: Positive: Pharynx normal Respiratory/Lung Sounds: Positive: Clear to Auscultation, Breath Sounds Present , Other - nonreproducible chest pain Cardiovascular: Positive: Normal, RRR Musculoskeletal: Positive: Normal Neurological: Positive: Normal Psychiatric: Positive: Normal Procedures - Sedation Patient Received Moderate/Deep Sedation with Procedure: No Diagnostics - Vital Signs Vital Signs Temp Pulse Resp BP Pulse Ox 09/20/19 21:22 20 126/67 09/20/19 21:19 91 93 09/20/19 21:15 98.6 F 92 16 126/67 94 - Laboratory Lab Results: Lab Results 09/20/19 09/20/19 09/20/19 Range/Units 20:30 20:30 20:30 WBC 9.8 (3.5-10.8) 10^3/uL RBC 4.21 (3.70-4.87) 10^6 /uL Hgb 14.9 (12.0-16.0) g/dL Hct 43 (35-47) % MCV 101 H (80-97) fL MCH 35 H (27-31) pg MCHC 35 (31-36) g/dL RDW 13 (10-15) % Plt Count 164 (150-450) 10^3/uL MPV 10.0 (7.4-10.4) fL Neut % (Auto) 77.5 % Lymph % (Auto) 13.8 % [place] % (Auto) 7.9 % Eos % (Auto) 0.3 % Baso % (Auto) 0.5 % Absolute Neuts (auto) 7.6 (1.5-7.7) 10^3/ul Absolute Lymphs (auto) 1.4 (1.0-4.8) 10^3/ul Absolute Monos (auto) 0.8 (0-0.8) 10^3/ul Absolute Eos (auto) 0.0 (0-0.6) 10^3/ul Absolute Basos (auto) 0.1 (0-0.2) 10^3/ul Absolute Nucleated RBC 0.0 10^3/ul Nucleated RBC % 0.2 INR (Anticoag Therapy) 1.05 (0.82-1.09) D-Dimer, Quantitative < 200 (Less Than 230) ng/mL Sodium 138 (135-145) mmol/L Potassium 3.0 L (3.5-5.0) mmol/L Chloride 105 (101-111) mmol/L Carbon Dioxide 22 (22-32) mmol/L Anion Gap 11 (2-11) mmol/L BUN 19 (6-24) mg/dL Creatinine 0.91 (0.51-0.95) mg/dL Est GFR ( Amer) 74.4 (>60) Est GFR (Non-Af Amer) 61.5 (>60) BUN/Creatinine Ratio 20.9 H (8-20) Glucose 103 H (70-100) mg/dL Calcium 9.1 (8.6-10.3) mg/dL Total Bilirubin 0.80 (0.2-1.0) mg/dL AST 20 (13-39) U/L ALT 12 (7-52) U/L Alkaline Phosphatase 61 (34-104) U/L Troponin I 0.01 (<0.04) ng/mL C-Reactive Protein 16.54 H (<8.01) mg/L B-Natriuretic Peptide (<=100) pg/mL Total Protein 6.9 (6.4-8.9) g/dL Albumin 4.2 (3.2-5.2) g/dL Globulin 2.7 (2-4) g/dL Albumin/Globulin Ratio 1.6 (1-3) 09/20/19 Range/Units 20:30 WBC (3.5-10.8) 10^3/uL RBC (3.70-4.87) 10^6 /uL Hgb (12.0-16.0) g/dL Hct (35-47) % MCV (80-97) fL MCH (27-31) pg MCHC (31-36) g/dL RDW (10-15) % Plt Count (150-450) 10^3/uL MPV (7.4-10.4) fL Neut % (Auto) % Lymph % (Auto) % [place] % (Auto) % Eos % (Auto) % Baso % (Auto) % Absolute Neuts (auto) (1.5-7.7) 10^3/ul Absolute Lymphs (auto) (1.0-4.8) 10^3/ul Absolute Monos (auto) (0-0.8) 10^3/ul Absolute Eos (auto) (0-0.6) 10^3/ul Absolute Basos (auto) (0-0.2) 10^3/ul Absolute Nucleated RBC 10^3/ul Nucleated RBC % INR (Anticoag Therapy) (0.82-1.09) D-Dimer, Quantitative (Less Than 230) ng/mL Sodium (135-145) mmol/L Potassium (3.5-5.0) mmol/L Chloride (101-111) mmol/L Carbon Dioxide (22-32) mmol/L Anion Gap (2-11) mmol/L BUN (6-24) mg/dL Creatinine (0.51-0.95) mg/dL Est GFR ( Amer) (>60) Est GFR (Non-Af Amer) (>60) BUN/Creatinine Ratio (8-20) Glucose (70-100) mg/dL Calcium (8.6-10.3) mg/dL Total Bilirubin (0.2-1.0) mg/dL AST (13-39) U/L ALT (7-52) U/L Alkaline Phosphatase (34-104) U/L Troponin I (<0.04) ng/mL C-Reactive Protein (<8.01) mg/L B-Natriuretic Peptide 102 H (<=100) pg/mL Total Protein (6.4-8.9) g/dL Albumin (3.2-5.2) g/dL Globulin (2-4) g/dL Albumin/Globulin Ratio (1-3) Result Diagrams: 09/20/19 20:30 09/20/19 20:30 Lab Statement: Any lab studies that have been ordered have been reviewed, and results considered in the medical decision making process. - Radiology chest Radiology Interpretation Completed By: ED Physician Summary of Radiographic Findings: no active disease - EKG No standard instances Cardiac Rate: NL EKG Rhythm: Sinus Rhythm EKG Comparison: No Significant Change Summary of EKG Findings: sinus rhythm Re-Evaluation - Re-Evaluation First Eval Re-Evaluation Time: 22:38 Change: Improved Comment: pain still 4 out of 10, will give dose of nitro Second Eval Re-Evaluation Time: 23:35 Comment: unchange after nitro Third Eval Re-Evaluation Time: 01:14 Change: Improved Comment: resolved after toradol Chest Pain Course/Dx - Course Course Of Treatment: 69 year old female presents with chest pain today. She states it started shortly after she woke. States it feels a pressure in the center of her chest. Doesn't radiate anywhere. It hurts worse when she takes a breath. no diaphoresis. She has an occasional cough. No recent illness. No fever. No vomiting. No diaphoresis. No nausea or vomiting. Mom did have a heart attack in her 60s. She is nonsmoker. No recent travel. denies any pain or swelling in her calf muscles. She is nonsmoker. States she does exercise fairly regularly and walks. She denies any change in the pain with activity. She had an aspirin this morning. She states pain is constant. States pain is 4 out of 10. On exam lungs heart regular rate and rhythm. EKG shows a sinus rhythm that is similiar to previous ekgs. wbc normal. crp slightly elevated. troponin x2 zero. d-dimer neg. chest xray normal. gave nitro with no improvement. gave toradol and pain resolved. patient seems to be describing more of a pleuritic pain. will discharge to have follow up with primary for stress test outpatient. told if anything changes to return. patient understand and agrees with plan. - Chest Pain Differential Diagnosis/HQI/PQRI: Acute CA, Angina, Pulmonary Embolism - Diagnoses Provider Diagnoses: Chest pain Discharge ED - Sign-Out/Discharge Documenting (check all that apply): Patient Departure - Discharge Plan Condition: Good Disposition: HOME Patient Education Materials: Chest Pain (ED) Referrals: Mary Grimm NP [Primary Care Provider] - Stefan Alvarez MD [Medical Doctor] - Additional Instructions: follow up with primary or cardiology within 5 days Take tyenlol every 6 hours for pain Return to ED if develop any new or worsening symptoms - Billing Disposition and Condition Condition: GOOD Disposition: Home
[2019-09-20] MEDS ORDERED: Nitroglycerin TAB 0.4 MG* 0.4 MG TAB SL ONE (22:34)
[2019-09-20] MEDS ORDERED: Ketorolac INJ* 30 MG/ML 1 ML VIAL IV PUSH ONE (23:35)
[2019-09-21 01:25] VITALS: BP 105/67
== END 2019-09-21 01:31 | disposition home or self-care (01) ==
LOC: ED 21:14
DX: R07.9 Chest pain, unspecified (principal); I10 Essential (primary) hypertension; F41.9 Anxiety disorder, unspecified; F32.9 Major depressive disorder, single episode, unspecified; R06.02 Shortness of breath
CPT/HCPCS: 36415; 71045; 80053; 83880; 84484; 85025; 85379; 85610; 86140; 93005; 96374; 99283; A9270-GY; J1885